=== PATIENT | female | born 1990 | race American Indian/Alaskan Native ===

== ENCOUNTER 2016-07-10 17:45 | Emergency (ER) | payer SELFPAY ==
[2016-07-10 18:07] VITALS: BP 118/76
[2016-07-10 18:30] LABS: Bilirubin,Urine NEG (Negative); Blood,Urine MOD (Negative); Ketones,Urine NEG (Negative); Leukocyte Esterase,Urine NEG (Negative); Mucus,Urine FEW /HPF; Nitrite,Urine NEG (Negative); Protein,Urine <15 mg/dL mg/dL (Negative); RBC,Urine < 1.0 /HPF (0.0-6.0); Urobilinogen,Urine < 2.0 mg/dL (<2.0); WBC,Urine < 1.0 /HPF (0.0-6.0)
--- NOTE | 2016-07-10 18:44 | Emergency Department Report ---
Entered by LEONIDES HOANG, acting as scribe for CASTRO BROWN PA. Chief Complaint: Urogenital-Female Stated Complaint: possible Herpes Time Seen by Provider: 07/10/16 18:03 - HPI History of Present Illness: 26 y/o female presents with possible STD that has been constant for the last 1.5 months. Pt notes taking cayan pepper pills, Sx would reside but come back again. She has had 3 outbreaks in the past 45 days. Pt states compliant of arm pain because she did not want her partner to know about the possible STD. - ROS Review of Systems: as noted in HPI - Exam Vital Signs: Vital Signs 07/10/16 18:00 Temperature 98.4 F Pulse Rate 89 Respiratory 20 Rate Blood Pressure 118/76 O2 Sat by Pulse 100 Oximetry Physical Exam: General: 26 y/o female in no acute distress. Well-developed, well-nourished. CV: Regular rate and rhythm. No murmurs rubs or gallops. Lungs: Clear to auscultation bilaterally. Abdomen: No tenderness to palpation. No guarding or rebound tenderness. Normal bowel sounds. Mini Neuro: Alert and oriented 3. [facility] screening note: Focused history and physical exam performed. Due to findings the following was ordered:pelvic exam was not performed in [facility], PATIENT WAS SENT TO FAST TRACK ED Disposition for [facility] Condition: Stable This documentation as recorded by the scribe,LEONIDES HOANG,accurately reflects the service I personally performed and the decisions made by ,CASTRO BROWN PA.
--- NOTE | 2016-07-10 19:50 | Emergency Department Report ---
ED Female HPI - General Chief complaint: Urogenital-Female Stated complaint: BACK/UNDER RIB PAIN Time Seen by Provider: 07/10/16 19:03 Source: patient Mode of arrival: Ambulatory Limitations: No Limitations - History of Present Illness Initial comments: This is a 26-year-old female that presents with concerns of STD that has been consistent for the past 1.5 months. Patient stated symptoms would reside and come back from time to time. Patient stated at least 3 outbreaks in the past 45 days. Patient states the outbreaks occurs 1 day after shaving. Patient symptoms include bumpy irritation. Patient denies any discharge, pelvic pain, abdominal pain, numbness or tingling, fever, foul odor, dysuria, polyuria. Patient stated is diagnosed with 2 cyst in ovaries in 2013 but has not followed with her primary care doctor. At this time the patient does not seem toxic or ill in appearance. No signs of distress noted. Patient agrees to having one sexual partner with using condoms. Denies latex allergies. Patient stated wrote down in a paper complaining of back pain, left rib pain, abdominal pain because she did not want her partner at this current time to note that she is here for a checkup for possibility of herpes/STD. Patient asked the partner not to be present during the interview and exam. MD Complaint: possible STD -: Gradual, month(s) (2) Severity scale (0 -10): 0 Are you Now?: No Associated Symptoms: denies other symptoms. denies: vaginal discharge, vaginal bleeding, abdominal pain, nausea/vomiting, headaches, loss of appetite, dysuria , hematuria, rash, seizure, shortness of breath, syncope, weakness - Related Data Sexually active: Yes Home Medications Medication Instructions Recorded Confirmed Last Taken Cayenne Pepper 07/10/16 07/09/16 Multivitamin with Iron 1 tab PO DAILY 07/10/16 07/10/16 07/09/16 Allergies Allergy/AdvReac Type Severity Reaction Status Date / Time No Known Allergies Allergy Unverified 07/10/16 17:58 ED Review of Systems ROS: Stated complaint: BACK/UNDER RIB PAIN Other details as noted in HPI Constitutional: denies: chills, fever Eyes: denies: eye pain, eye discharge, vision change ENT: denies: ear pain, throat pain Respiratory: denies: cough, shortness of breath, wheezing Cardiovascular: denies: chest pain, palpitations Endocrine: no symptoms reported Gastrointestinal: denies: abdominal pain, nausea, diarrhea Genitourinary: denies: urgency, dysuria, discharge Musculoskeletal: denies: back pain, joint swelling, arthralgia Skin: denies: rash, lesions Neurological: denies: headache, weakness, paresthesias Psychiatric: denies: anxiety, depression Hematological/Lymphatic: denies: easy bleeding, easy bruising ED Past Medical Hx - Past Medical History Previous Medical History?: Yes Hx Psychiatric Treatment: Yes (PTSD) - Surgical History Hx Appendectomy: Yes - Social History Smoking Status: Current Every Day Smoker Substance Use Type: Alcohol, Prescribed - Medications Home Medications: Home Medications Medication Instructions Recorded Confirmed Last Taken Type Cayenne Pepper 07/10/16 07/09/16 History Multivitamin with Iron 1 tab PO DAILY 07/10/16 07/10/16 07/09/16 History ED Physical Exam - General Limitations: No Limitations General appearance: alert, in no apparent distress - Head Head exam: Present: atraumatic, normocephalic - Eye Eye exam: Present: normal appearance - ENT ENT exam: Present: mucous membranes moist - Neck Neck exam: Present: normal inspection - Respiratory Respiratory exam: Present: normal lung sounds bilaterally. Absent: respiratory distress - Cardiovascular Cardiovascular Exam: Present: regular rate, normal rhythm. Absent: systolic murmur, diastolic murmur, rubs, gallop - GI/Abdominal GI/Abdominal exam: Present: soft, normal bowel sounds. Absent: distended, tenderness, guarding, rebound, rigid, diminished bowel sounds, hyperactive bowel sounds, hypoactive bowel sounds, mass, bruit, pulsatile mass, hernia - Rectal Rectal exam: Present: deferred - External exam: Present: normal external exam. Absent: erythema, swelling, lesions, lacerations, ecchymosis, bleeding Speculum exam: Present: normal speculum exam. Absent: erythema, vaginal discharge, cervical discharge, vaginal bleeding, foreign body, tissue, laceration Bi-manual exam: Present: normal bi-manual exam. Absent: cervical motion tendernes, adnexal tenderness, adnexal mass, uterine enlargement, uterine tenderness - Extremities Exam Extremities exam: Present: normal inspection, full ROM, normal capillary refill. Absent: tenderness, pedal edema, joint swelling - Back Exam Back exam: Present: normal inspection, full ROM. Absent: tenderness, CVA tenderness (R), CVA tenderness (L) - Neurological Exam Neurological exam: Present: alert, oriented X3, CN II-XII intact, normal gait - Psychiatric Psychiatric exam: Present: normal affect, normal mood - Skin Skin exam: Present: warm, dry, intact, normal color, other. Absent: rash - Other Other exam information: No cervical or vaginal discharge. No erythema in the cervix or vaginal wall. No CVA tenderness. No cervical motion tenderness. No pelvic or abdomen tenderness. No foul odor present. No signs of labial erythema or any lesions or bumps. Patient stated is currently not present but will come back she believes. ED Course Vital Signs 07/10/16 18:00 Temperature 98.4 F Pulse Rate 89 Respiratory 20 Rate Blood Pressure 118/76 O2 Sat by Pulse 100 Oximetry ED Medical Decision Making - Medical Decision Making Ed course: 26-year-old female that presents with concerns for STD 1- gonorrhea chlamydia was obtained during bimanual/vaginal speculum back on exam. I instructed the patient to return to [facility] in 7 days to obtain results 2- I instructed the patient to follow-up with her transfer table operator helper in 3-5 days. I also instructed patient if symptoms return and worsen such as rash, lesions, pustular bumps to return back to emergency room. 3- at the time of discharge the patient denies seem toxic or ill in appearance. No signs of distress noted. 4- patient agrees to discharge plan. Patient they will follow-up for the results of gonorrhea or chlamydia. No further questions noted by the patient. 5- Wet prep negative for clue cells. Critical care attestation.: If time is entered above; I have spent that time in minutes in the direct care of this critically ill patient, excluding procedure time. ED Disposition Clinical Impression: Possible exposure to STD Disposition: DISCHARGED TO HOME OR SELFCARE Is pt being admited?: No Does the pt Need Aspirin: No Condition: Stable Additional Instructions: Follow-up with your transfer table operator helper or primary care doctor in 3-5 days If symptoms worsen report back to emergency room Referrals: THELMA ONTIVEROS MD [Primary Care Provider] - 3-5 Days [facility] [Outside] - 3-[address] [facility] [Outside] - 3-5 Days RITCHIE FERRARO MD [Referring] - 3-5 Days SOLOMON FERRARO MD [Staff Physician] - 3-5 Days Forms: Work/School Release Form(ED)
== END 2016-07-10 20:26 | disposition home or self-care (01) ==
LOC: ED 17:45
DX: Z20.2 Contact with and (suspected) exposure to infections with a predominantly sexual mode of transmission (principal); F43.10 Post-traumatic stress disorder, unspecified; F17.200 Nicotine dependence, unspecified, uncomplicated; Z90.49 Acquired absence of other specified parts of digestive tract
CPT/HCPCS: 81001; 81025; 87210; 87591; 99283

== ENCOUNTER 2016-11-18 04:28 | Emergency (ER) | payer OTHER ==
[2016-11-18 05:17] LABS: Hemoglobin 13.9 gm/dl (10.1-14.3); Mean Corpuscular HGB Conc 32 % (30-34); Mean Corpuscular Hemoglobin 28 pg (28-32); Mean Corpuscular Volume 88 fl (79-97); Platelet Count 341 K/mm3 (140-440); Red Blood Count 4.89 M/mm3 (3.65-5.03); Red Cell Distribution Width 15.8 % (13.2-15.2); White Blood Count 9.8 K/mm3 (4.5-11.0)
[2016-11-18 05:46] LABS: Alanine Aminotransferase 12 units/L (7-56); Albumin 4.5 g/dL (3.9-5); Albumin/Globulin Ratio 1.6 %; Alkaline Phosphatase 54 units/L (35-129); Anion Gap 21 mmol/L; BUN/Creatinine Ratio 21.66; Blood Urea Nitrogen 13 mg/dL (7-17); Calcium 9.8 mg/dL (8.4-10.2); Carbon Dioxide 22 mmol/L (22-30); Chloride 98.6 mmol/L (98-107); Glucose 84 mg/dL (65-100); Lipase 30 units/L (13-60); Potassium 4.5 mmol/L (3.6-5.0); Sodium 137 mmol/L (137-145); Total Protein 7.3 g/dL (6.3-8.2)
[2016-11-18 06:06] LABS: Mucus,Urine FEW /HPF
[2016-11-18 06:17] LABS: Bilirubin,Urine NEG (Negative); Blood,Urine NEG (Negative); Ketones,Urine NEG (Negative); Leukocyte Esterase,Urine NEG (Negative); Nitrite,Urine NEG (Negative); Protein,Urine <15 mg/dL mg/dL (Negative); Urobilinogen,Urine < 2.0 mg/dL (<2.0)
[2016-11-18 07:46] LABS: Anisocytosis 1+; Basophils % (Manual) 0 % (0.0-1.8); Blastocytes % (Manual) 0 %; Eosinophils % (Manual) 0 % (0.0-4.3); Hypochromasia Few; Platelet Estimate Appe
[2016-11-18 07:47] LABS: Diff Status Complete
[2016-11-18] MEDS ORDERED: ROCEPHIN IM ONE (10:49)
[2016-11-18] MEDS ORDERED: ZITHROMAX PO ONE (10:49)
[2016-11-18] MEDS ORDERED: XYLOCAINE 1% MPF 5 mL INFILTRATI ONE (10:49)
--- NOTE | 2016-11-18 10:57 | Emergency Department Report ---
ED Abdominal Pain HPI - General Chief Complaint: Abdominal Pain Stated Complaint: VAGINAL DISCHARGE Time Seen by Provider: 11/18/16 10:43 Source: patient Mode of arrival: Ambulatory Limitations: No Limitations - History of Present Illness Initial Comments: 46-year-old female here with vaginal discharge and left flank pain. Patient states that she's been having some pain for several days. She also noted some vaginal discharge for the last several days. Denies fevers chills nausea vomiting. Otherwise appears well. MD Complaint: abdominal pain -: Sudden Location: LLQ Radiation: none Migration to: no migration Severity: mild Quality: cramping Associated Symptoms: denies: nausea, vomiting, diarrhea, fever, chills, constipation, dysuria, hematemesis, hematochezia, melena, hematuria, anorexia - Related Data Home Medications Medication Instructions Recorded Confirmed Last Taken Cayenne Pepper 07/10/16 07/09/16 Multivitamin with Iron 1 tab PO DAILY 07/10/16 07/10/16 07/09/16 Previous Rx's Medication Instructions Recorded Last Taken Type Ibuprofen [Motrin] 600 mg PO Q8H PRN #30 tablet 11/18/16 Unknown Rx metroNIDAZOLE [Metrogel 1%] 1 applicatio VG QDAY #60 gel..gram. 11/18/16 Unknown Rx Allergies Allergy/AdvReac Type Severity Reaction Status Date / Time No Known Allergies Allergy Unverified 07/10/16 17:58 ED Review of Systems ROS: Stated complaint: VAGINAL DISCHARGE Other details as noted in HPI Comment: All other systems reviewed and negative Constitutional: denies: chills, fever Eyes: denies: eye pain, eye discharge, vision change ENT: denies: ear pain, throat pain Respiratory: denies: cough, shortness of breath, wheezing Cardiovascular: denies: chest pain, palpitations Endocrine: no symptoms reported Gastrointestinal: denies: abdominal pain, nausea, diarrhea Genitourinary: denies: urgency, dysuria, discharge Musculoskeletal: denies: back pain, joint swelling, arthralgia Skin: denies: rash, lesions Neurological: denies: headache, weakness, paresthesias Psychiatric: denies: anxiety, depression Hematological/Lymphatic: denies: easy bleeding, easy bruising ED Past Medical Hx - Past Medical History Previous Medical History?: No Hx Psychiatric Treatment: Yes (PTSD) - Surgical History Past Surgical History?: No Hx Appendectomy: Yes - Family History Family history: no significant - Social History Smoking Status: Current Every Day Smoker Substance Use Type: None - Medications Home Medications: Home Medications Medication Instructions Recorded Confirmed Last Taken Type Cayenne Pepper 07/10/16 07/09/16 History Multivitamin with Iron 1 tab PO DAILY 07/10/16 07/10/16 07/09/16 History Ibuprofen [Motrin] 600 mg PO Q8H PRN #30 tablet 11/18/16 Unknown Rx metroNIDAZOLE [Metrogel 1%] 1 applicatio VG QDAY #60 gel..gram. 11/18/16 Unknown Rx ED Physical Exam - General Limitations: No Limitations General appearance: alert, in no apparent distress, obese - Head Head exam: Present: atraumatic, normocephalic - Eye Eye exam: Present: normal appearance. Absent: scleral icterus, conjunctival injection - ENT ENT exam: Present: mucous membranes moist - Neck Neck exam: Present: normal inspection - Respiratory Respiratory exam: Present: normal lung sounds bilaterally. Absent: respiratory distress - Cardiovascular Cardiovascular Exam: Present: regular rate, normal rhythm. Absent: systolic murmur, diastolic murmur, rubs, gallop - GI/Abdominal GI/Abdominal exam: Present: soft, normal bowel sounds. Absent: distended, tenderness, guarding - External exam: Present: normal external exam Speculum exam: Present: erythema, vaginal discharge, other (cervix is enlarged and red) Bi-manual exam: Absent: cervical motion tendernes - Extremities Exam Extremities exam: Present: normal inspection - Back Exam Back exam: Present: normal inspection - Neurological Exam Neurological exam: Present: alert, oriented X3 - Psychiatric Psychiatric exam: Present: normal affect, normal mood - Skin Skin exam: Present: warm, dry, intact, normal color. Absent: rash ED Course Vital Signs 11/18/16 11/18/16 11/18/16 04:40 10:55 11:00 Temperature 98.2 F Pulse Rate 85 Blood Pressure 138/92 119/70 O2 Sat by Pulse 94 99 Oximetry ED Medical Decision Making - Lab Data Result diagrams: 11/18/16 04:56 11/18/16 04:56 Laboratory Results - last 24 hr 11/18/16 11/18/16 11/18/16 04:56 04:56 Unknown WBC 9.8 RBC 4.89 Hgb 13.9 Hct 43.0 H MCV 88 MCH 28 MCHC 32 RDW 15.8 H Plt Count 341 Lymph # Teletypesetter Operator Add Manual Diff Complete Total Counted 100 Seg Neuts % (Manual) 54.0 Band Neutrophils % 0 Lymphocytes % (Manual) 36.0 H Reactive Lymphs % (Man) 0 Monocytes % (Manual) 9.0 H Eosinophils % (Manual) 0 Basophils % (Manual) 0 Metamyelocytes % 1.0 Myelocytes % 0 Promyelocytes % 0 Blast Cells % 0 Nucleated RBC % Not Reportable Seg Neutrophils # Man 5.3 Band Neutrophils # 0.0 Lymphocytes # (Manual) 3.5 Abs React Lymphs (Man) 0.0 Monocytes # (Manual) 0.9 H Eosinophils # (Manual) 0.0 Basophils # (Manual) 0.0 Metamyelocytes # 0.1 Myelocytes # 0.0 Promyelocytes # 0.0 Blast Cells # 0.0 WBC Morphology Not Reportable Hypersegmented Neuts Not Reportable Hyposegmented Neuts Not Reportable Hypogranular Neuts Not Reportable Smudge Cells Not Reportable Toxic Granulation Not Reportable Toxic Vacuolation Not Reportable Dohle Bodies Not Reportable Pelger-Huet Anomaly Not Reportable Nena Rods Not Reportable Platelet Estimate Appe Clumped Platelets Not Reportable Plt Clumps, EDTA Not Reportable Large Platelets Not Reportable Giant Platelets Not Reportable Platelet Satelliting Not Reportable Plt Morphology Comment Not Reportable RBC Morphology Not Reportable Dimorphic RBCs Not Reportable Polychromasia Not Reportable Hypochromasia Few Poikilocytosis Not Reportable Anisocytosis 1+ Microcytosis Not Reportable Macrocytosis Not Reportable Spherocytes Not Reportable Pappenheimer Bodies Not Reportable Sickle Cells Not Reportable Target Cells Not Reportable Tear Drop Cells Not Reportable Ovalocytes Not Reportable Helmet Cells Not Reportable [place] Bodies Not Reportable [place] Rings Not Reportable Carol Cells Not Reportable Bite Cells Not Reportable Crenated Cell Not Reportable Elliptocytes Not Reportable Acanthocytes (Spur) Not Reportable Rouleaux Not Reportable Hemoglobin C Crystals Not Reportable Schistocytes Not Reportable Malaria parasites Not Reportable Carlos Bodies Not Reportable Hem Pathologist Commnt No Sodium 137 Potassium 4.5 Chloride 98.6 Carbon Dioxide 22 Anion Gap 21 BUN 13 Creatinine 0.6 L Estimated GFR > 60 BUN/Creatinine Ratio 21.66 Glucose 84 Calcium 9.8 Total Bilirubin 0.20 AST 12 ALT 12 Alkaline Phosphatase 54 Total Protein 7.3 Albumin 4.5 Albumin/Globulin Ratio 1.6 Lipase 30 Urine Color Yellow Urine Turbidity Clear Urine pH 5.0 Ur Specific [place] 1.027 Urine Protein <15 mg/dl Urine Glucose (UA) Neg Urine Ketones Neg Urine Blood Neg Urine Nitrite Neg Ur Reducing Substances Not Reportable Urine Bilirubin Neg Urine Ictotest Not Reportable Urine Urobilinogen < 2.0 Ur Leukocyte Esterase Neg Urine WBC (Auto) 1.0 Urine RBC (Auto) 1.0 U Epithel Cells (Auto) 7.0 Hyaline Casts 7 Urine Mucus Few Urine HCG, Qual Negative - Medical Decision Making 26-year-old female here with left flank pain and vaginal discharge. Patient has had recent multiple sexual encounters. We'll likely need to be treated for STD. Discussed treatment and further evaluation with the patient. Plan to treat for gonorrhea and chlamydia. We'll also discharge patient with prescription to cover bacterial vaginosis. Discussed need for her to discuss this with her sexual partners. Portions of this chart were dictated with dictation software. There may be dictation errors contained within this note. Critical care attestation.: If time is entered above; I have spent that time in minutes in the direct care of this critically ill patient, excluding procedure time. ED Disposition Clinical Impression: STD (female), Abdominal pain Disposition: DC-01 TO HOME OR SELFCARE Is pt being admited?: No Condition: Stable Instructions: Abdominal Pain (ED), Sexually Transmitted Diseases (ED) Prescriptions: Ibuprofen [Motrin] 600 mg PO Q8H PRN #30 tablet PRN Reason: Pain metroNIDAZOLE [Metrogel 1%] 1 applicatio VG QDAY #60 gel..gram. Referrals: PRIMARY CARE, [Primary Care Provider] - 3-5 Days
[2016-11-18 11:17] VITALS: BP 119/70
== END 2016-11-18 12:32 | disposition home or self-care (01) ==
LOC: ED 04:28
DX: A63.8 Other specified predominantly sexually transmitted diseases (principal); R10.32 Left lower quadrant pain; F17.200 Nicotine dependence, unspecified, uncomplicated
CPT/HCPCS: 36415; 80053; 81001; 81025; 83690; 85007; 85025; 87591; 96372; 99284; J0696